=== PATIENT | female | born 1990 | race Two or more races ===

== ENCOUNTER 2024-03-21 07:02 | Emergency (ER) | payer MEDICAID, SELFPAY ==
[2024-03-21 07:03] VITALS: BMI 29.9
[2024-03-21 07:29] VITALS: BP 123/81; PULSE 74; RESP 16; TEMP 37.1; O2SAT 98
--- NOTE | 2024-03-21 07:47 | PD.EDEAR ---
ED Ear RME/HPI General Chief complaint: Ear Stated complaint: Right ear pain since Friday Time Seen by Provider: 03/21/24 07:33 Arrival date/time: 03/21/24 07:02 RME / HPI RME / HPI Narrative: 33-year-old female presents emergency department with complaint of right ear pain for the past 2 days patient denies fever denies chills denies ear drainage denies loss of hearing. Patient rates her pain as a 5 out of 10 and is worse with pulling at her ear. Related Data Home Medications ?Medication ?Instructions ?Recorded ?Confirmed prenat.vits,charmaine,[id number] 1 tab PO QDAY 08/05/17 12/21/17 ( Vitamin tablet) Previous Rx's ?Medication ?Instructions ?Recorded acetaminophen 500 mg capsule 500 mg PO QID PRN pain #30 caps 03/21/24 amoxicillin 500 mg capsule 500 mg PO Q8H #30 caps 03/21/24 Allergies Allergy/AdvReac Type Severity Reaction Status Date / Time No Known Allergies Allergy Verified 03/06/23 08:30 Review of Systems Review of Systems Systems Reviewed: All systems reviewed, normal except as documented Constitutional Constitutional: Reports system reviewed and no additional complaints, except as documented ENT Ears, Nose, Mouth, and Throat: Reports otalgia Cardiovascular Cardiovascular: Reports system reviewed and no additional complaints, except as documented Respiratory Respiratory: Reports system reviewed and no additional complaints, except as documented Musculoskeletal Musculoskeletal: Reports system reviewed and no additional complaints, except as documented ED Exam General General appearance: Present alert and in no apparent distress Head Head exam: Present atraumatic and normocephalic Eye Eye exam: Present normal appearance ENT ENT exam: Present other (Erythema of the right TM) Neck Neck exam: Present normal inspection and full ROM Cardiovascular Cardiovascular exam: Present regular rate and normal rhythm Course Quality Measures none Vital Signs Vital signs: Vital Signs Temperature 98.7 F 03/21/24 07:29 Pulse Rate 74 03/21/24 07:29 Respiratory Rate 16 03/21/24 07:29 Blood Pressure 123/81 03/21/24 07:29 Pulse Oximetry (%) 98 03/21/24 07:29 Oxygen Delivery Method Room Air 03/21/24 07:29 Ear MDM Narrative MDM Narrative:: 33-year-old female patient presents emergency department with complaint of right ear pain on physical exam there is erythema noted to the TM consistent with otitis media patient will be DC'd home with oral antibiotics. Patient data External records reviewed:: None Clinical information provided by:: patient Social determinants that could affect healthcare access:: none Patient has the following chronic illnesses:: na How is presenting disease/condition affected by chronic disease/condition?: no chronic disease Evaluation data The following diagnostics were reviewed and interpreted by me:: other (specify) (na) Lab and/or radiology exams considered but not ordered:: na Interpretation Summary: na Medications / Prescriptions Medications or Prescriptions considered but not ordered:: meds considered and ordered Medication administrations:: na Consultations Consultation(s) initiated? (list below): No Diagnosis Ear Differential Diagnosis: otitis externa, otitis media, foreign body in ear and other Most likely diagnosis given after review of the tests above:: otitis media Admission Indicated Admission indicated?: not indicated Admission Request Was there a request for admission?: No Disposition Plan Disposition Plan: Discharge Discharge Attestation Discharge Attestation: The patient and all family members were given an opportunity to ask questions and understood the discharge instructions. Discharge instructions specifically effects, indications for sooner follow up or return to the emergency department, and the expected course of current diagnosis. Patient condition: Stable Discharge Plan Plan Patient Disposition: HOME (Self Care) Prescriptions/Referrals Prescriptions/Med Rec: New amoxicillin 500 mg capsule 500 mg PO Q8H Qty: 30 0RF acetaminophen 500 mg capsule 500 mg PO QID PRN (Reason: pain) Qty: 30 0RF No Action prenat.vits,charmaine,[id number] [ Vitamin] Tablet 1 tab PO QDAY Problem List Clinical Impression: Otitis media Patient/Caregiver Discharge Instructions Education Materials: ED Otitis Media Antibiotic ... Print Language: [place] Stand Alone Forms: Mar Award Info., Patient Portal Info Letter
== END 2024-03-21 09:30 | disposition home or self-care (01) ==
PROVIDERS: Emergency Provider Emergency Medicine
DX: H66.91 Otitis media, unspecified, right ear (principal)
CPT/HCPCS: 99281